=== PATIENT | female | born 2000 | race Caucasian/White ===

== ENCOUNTER → 2025-01-02 | Day surgery (SDC) | payer BC ==
[~2025-01-02] MED LIST: FENTANYL CITR 100 MCG/2 ML ONE; KETOROLAC 30 MG/ML INJ ONE; LIDOCAINE 2% MPF 5 ML VIAL ONE; MIDAZOLAM HCL 2 MG/2 ML INJ ONE; Mastisol Adhesive Liq ONE; ONDANSETRON 4 MG/2 ML VIAL ONE; ROCURONIUM 50 MG/5 ML VIAL IV ONE; dexAMETHasone 10 MG/ML VIAL ONE; propofoL 200 MG/20 ML VIAL IV ONE
[2025-01-02] MEDS: Ringers Lactate 1,000 ML IV ONE (09:20)
--- NOTE | 2025-01-02 10:00 | RAD REPORT ---
EXAMINATION: TWO VIEW CHEST XR CLINICAL INDICATION: Female, 24 years old. [facility] MAIN PRE-OP, DAY OF SURGERY SDS ROOM 2 TECHNIQUE: 2 view radiographs of the chest were performed. COMPARISON: No prior exam. FINDINGS: The lungs are well inflated and clear. No pneumothorax or sizable effusion. The heart is normal in si ze. Mediastinal contours are unremarkable. IMPRESSION: No acute or significant abnormalities.
[2025-01-02] MEDS: CEFAZOLIN SODIUM 1 GM/VIAL ONE (12:27)
--- NOTE | 2025-01-02 13:13 | P.BOP ---
Preoperative diagnosis: submandibular lymphadenopathy Postoperative diagnosis: same Primary procedure: Submandibular lymphadenectomy ( lymphnode excision) Estimated blood loss: <10cc Specimen: intact entire enlarged lymphnode Findings: as above Anesthesia: General Transferred to: Recovery Room Condition: Good
[2025-01-02 13:24] VITALS: O2SAT 100
[2025-01-02 14:31] VITALS: BP 108/71; TEMP 97
--- NOTE | 2025-01-11 12:32 | OP ---
Date of Procedure: 01/11/2025 Surgeon: Donnell Wise MD Preoperative Diagnosis: Submandibular lymphadenopathy. Postoperative Diagnosis: Submandibular lymphadenopathy. Procedure Performed: Submandibular lymphadenectomy, lymph node excision. Estimated Blood Loss: Less than 10 cc. Specimen: Intact entire enlarged lymph node. Anesthesia: General plus local. Indication: This is the case of a female, who comes to us with lymphadenopathy. There was 1 specifi mounika palpated in the submental region, submandibular area. It is in an area that she understands __ leave a scar, but is hiding compared with other places that we might have. She wants that 1 removed and which is the 1 that we see that is a largest, so benefits and risks of lymphadenectomy f ully explained, which include, but not limited to infection, bleeding, damage to adjacent structures, seroma, [place], and even . She also understands this may not relieve symptoms. She might need mor e than one surgical intervention. She understands the importance of following up with Dr. Portillo, [facility], who is the 1 that requested the entire lymph node just not a needle biopsy of that area for him to make the most accurate diagnosis and the patient did agree with that. Description Of Procedure: The patient was brought to the operating room, placed in supine position. Anesthesia was given without complication. Previously, we put a tim with the area of concern. An incision was made in that area and there we saw the lymph node. We dissected free, tied the connect ion, removed the lymph nodes completely intact, and sent that to pathology as a fresh. The area was irrigated. Hemostasis obtained and we proceeded to close the area with a combination of 3-0 chromic. The patient tolerated the procedure well. The patient was sent to recovery in stable condition. Condition: Stable. Disposition: Home. Activity: As tolerated. No heavy lifting. Followup: Follow up in my office in 1 week. Call for appointment on [phone]. Keep area dry for 48 hours, then may shower. MILLY/IZABEL Voice ID: [id number] Report ID: [id number]
== END | disposition home or self-care (01) ==
LOC: OR 08:49
PROVIDERS: ATTEND Surgery
PROC: 07T00ZZ Resection of Head Lymphatic, Open Approach (ICD-10-PCS; principal; 2025-01-02 13:15)
DX: R59.0 Localized enlarged lymph nodes (principal)
CPT/HCPCS: 38500; 88305; 71046; J2704; J2003; J2250; J3010; J1100; J2405; J7120; J0690